=== PATIENT | female | born 1970 | race Caucasian/White ===

== ENCOUNTER → 2018-04-07 | Outpatient (CLI) | payer BC ==
[~2018-04-07] MED LIST: MOTRIN600 MG PO
== END | disposition home or self-care (01) ==
LOC: NUC 07:53
DX: E05.00 Thyrotoxicosis with diffuse goiter without thyrotoxic crisis or storm (principal)
CPT/HCPCS: 76536; 78014; 78999; A9516

== ENCOUNTER → 2018-04-28 | Outpatient (CLI) | payer BC | END | disposition home or self-care (01) | LOC: NUC 09:00 | DX: E05.00 Thyrotoxicosis with diffuse goiter without thyrotoxic crisis or storm (principal) | CPT/HCPCS: 79005; A9517 ==